=== PATIENT | male | born 1995 | race Caucasian/White ===

== ENCOUNTER 2016-12-18 23:29 | Emergency (ER) | payer BC ==
[~2016-12-18] VITALS: Ht 177.8 cm; Wt 68.0 kg
[2016-12-18] MEDS ORDERED: NKM (23:53)
[2016-12-18 23:55] VITALS: BP 168/97
[2016-12-18] MEDS ORDERED: PERMETHRIN60 GM TOPIC (23:56)
[2016-12-18] MEDS ORDERED: KEFLEX500 MG ORAL (23:56)
--- NOTE | 2016-12-19 03:09 | Emergency Room Report ---
History of Present Illness General Chief Complaint: Skin Rash/Abscess Source: Patient Present Illness HPI 21-year-old male presents ED for evaluation. States the last 3 days he's been seeing insects crawl out of his skin. Notes diffuse rash is across his body. Denies drug use. Denies fevers or chills. Denies pain. States he is very itchy. No aggravating or leading factors. Denies any other associated symptoms Allergies: Coded Allergies: No Known Allergies (Unverified , 12/18/16) Patient History Past Medical History: none Past Surgical History: none Pertinent Family History: none Social History: Denies: smoking, alcohol use, drug use Immunizations: UTD Reviewed Nursing Documentation: PMH: Agreed, PSxH: Agreed Nursing Documentation-PMH Past Medical History: No Stated History Review of Systems All Other Systems: negative except mentioned in HPI Physical Exam Vital Signs Date Time Temp Pulse Resp B/P (MAP) Pulse Ox O2 Delivery O2 Flow Rate FiO2 12/18/16 23:42 97.9 110 16 168/97 95 Room Air Sp02 EP Interpretation: reviewed, normal General Appearance: no apparent distress, alert, GCS 15, non-toxic Head: normocephalic, atraumatic Eyes: bilateral eye normal inspection, bilateral eye PERRL ENT: hearing grossly normal, normal pharynx, no angioedema, normal voice Neck: full range of motion, supple/symm/no masses Respiratory: chest non-tender, lungs clear, normal breath sounds, speaking full sentences Cardiovascular #1: regular rate, rhythm, no edema Cardiovascular #2: 2+ carotid (R), 2+ carotid (L), 2+ radial (R), 2+ radial (L) , 2+ dorsalis pedis (R), 2+ dorsalis pedis (L) Gastrointestinal: normal bowel sounds, non tender, soft, non-distended, no guarding, no rebound Rectal: deferred Genitourinary: normal inspection, no CVA tenderness Musculoskeletal: back normal, gait/station normal, normal range of motion, non- tender Neurologic: alert, oriented x3, responsive, motor strength/tone normal, sensory intact, speech normal Psychiatric: judgement/insight normal, memory normal, mood/affect normal, no suicidal/homicidal ideation Reflexes: 3+ bicep (R), 3+ bicep (L), 3+ tricep (R), 3+ tricep (L), 3+ knee (R) , 3+ knee (L) Skin: rash - multiple linear excoriations diffuse to body. Lymphatic: no adenopathy Medical Decision Making Diagnostic Impression: Primary Impression: Rash and other nonspecific skin eruption ER Course Hospital Course 21 yo M presents to ED c/o rash Differential diagnoses include: Cellulitis, dermatitis, insect bite, abscess Clinical course Patient placed on stretcher. After initial history, physical exam reveals a male in no acute distress. On exam there are multiple linear excoriations to the arms and legs. Consistent with scabies Diagnosis - rash stable and discharged to home with prescription for Keflex, Permethin. Instructed to followup with PMD. Instructed return to ED if symptoms recur or worsen Last Vital Signs Date Time Temp Pulse Resp B/P (MAP) Pulse Ox O2 Delivery O2 Flow Rate FiO2 12/18/16 23:55 97.9 16 168/97 95 Room Air 12/18/16 23:55 110 Status: improved Disposition: HOME, SELF-CARE Condition: Stable Scripts Permethrin* (ELIMITE*) 60 Gm Cream..g. 1 APPLIC TOPIC ONCE, #60 GM 0 Refills Apply cream from head to toe; leave on for 8-14 hours before washing off with water; may reapply in 1 week if live mites appear. Prov: VIVIAN FORD M.D. 12/18/16 Cephalexin* (KEFLEX*) 500 Mg Capsule 500 MG ORAL Q6H, #28 CAP 0 Refills Prov: VIVIAN FORD M.D. 12/18/16 Patient Instructions: Contact Precautions, [id number], Insect Bite, Easy-to- Read VIVIAN FORD M.D. Dec 19, 2016 03:09
== END 2016-12-18 23:59 | disposition home or self-care (01) ==
LOC: EMR 23:59
DX: R21 Rash and other nonspecific skin eruption (principal)
CPT/HCPCS: 99284